=== PATIENT | male | born 1955 | race Caucasian/White ===

== ENCOUNTER 2021-05-17 06:53 | Inpatient (IN) | payer MEDICARE ==
[~2021-05-17] VITALS: Ht 182.9 cm; Wt 74.7 kg
[~2021-05-17 06:53] MED LIST: ALPR0.5T8 PO; CARI350T26 PO; DIAZ10 PO; HYDR-4069 PO; MORP100T6 PO; OXYC10TA59 PO; SEVE800T17 PO
[2021-05-17] MEDS ORDERED: ALBUTEROL SULFATE HFA 90 MCG/PUFF 8 GM INHALER IH ONE (07:15)
[2021-05-17] MEDS ORDERED: SODIUM CHLORIDE 0.9% 1,000 ML IV ONE (07:30)
[2021-05-17] MEDS ORDERED: SODIUM CHLORIDE 0.9% 2,250 ML IV ONE (07:30)
[2021-05-17] MEDS ORDERED: ACETAMINOPHEN 1000 MG/ISO-OSM 100 ML IV ONE (07:30)
[2021-05-17 07:31] LABS: ABG BASE EXCESS -2.1 mmol/L (-2.0-3.0); ABG CARBOXYHEMOGLOBIN 3.3 % (0.0-1.5); ABG HCO3 22.9 mmol/L (22.0-26.0); ABG METHEMOGLOBIN 0.3 % (0.0-1.5); ABG OXYGEN CONTENT 14.7 mL/dL (15.0-23.0); ABG OXYGEN SATURATION 95.7 % (95.0-98.0); ABG OXYHEMOGLOBIN 92.3 % (94.0-100.0); ABG PCO2 43 mmHg (35-45); ABG PH 7.352 (7.35-7.450); ABG TOTAL HEMOGLOBIN 11.3 G/dL (12.0-18.0); PO2, ARTERIAL BG 88.8 mmHg (79.0-87.0); SOURCE, BLOOD GAS ARTERIAL; TEMPERATURE, FAHRENHEIT, BG 101.5 FAHREN (96.0-98.6)
[2021-05-17 07:32] LABS: O2 DEVICE,BLOOD GAS CANNULA (ROOM AIR); SITE, BLOOD GAS LFT BRACHIAL
[2021-05-17 07:33] LABS: COVID AG,FIA SOURCE NASAL SWAB
[2021-05-17 07:38] LABS: BASOPHILS % (AUTO) 0.2 % (0.0-2.0); EOSINOPHILS % (AUTO) 0.9 % (1.0-6.0); HEMATOCRIT 34.4 % (41-53); HEMOGLOBIN 11.4 g/dL (13.5-17.5); LYMPHOCYTES # (AUTO) 0.2 K/uL (1.0-4.8); MEAN CORPUSCULAR HEMOGLOBIN 31.6 pg (26.0-34.0); MEAN CORPUSCULAR HGB CONC 33.2 G/dL (31.0-37.0); MEAN CORPUSCULAR VOLUME 95 fL (80-100); MONOCYTES % (AUTO) 1.3 % (2.0-9.0); NEUTROPHILS # (AUTO) 1.8 K/uL (1.8-7.7); PLATELET COUNT (AUTO) 189 K/uL (150-450); RED BLOOD CELL COUNT(AUTO) 3.61 MIL/uL (4.50-5.90); RED CELL DISTRIBUTION WIDTH 14.2 % (11.5-14.5)
[2021-05-17 07:43] LABS: NEUTROPHILS % (AUTO) 88.6 % (40.0-70.0)
[2021-05-17] MEDS ORDERED: CefTRIAXone 1 GM/DEXTROSE 50 ML IV ONE (07:45)
[2021-05-17] MEDS ORDERED: AZITHROMYCIN 500 MG/NS 250 ML IV ONE (07:45)
[2021-05-17 07:50] LABS: CALCIUM, TOTAL 9.7 mg/dL (8.8-10.5); CREATININE 4.91 mg/dL (0.60-1.30); POTASSIUM 5.1 mmol/L (3.5-5.1)
[2021-05-17 07:56] LABS: PHOSPHORUS 3.8 mg/dL (2.5-4.9); TOTAL PROTEIN, SERUM 7.8 g/dL (6.4-8.2)
[2021-05-17 08:01] LABS: INFLUENZA TYPE A NEGATIVE FOR TYPE A (NEGATIVE); INFLUENZA TYPE B NEGATIVE FOR TYPE B (NEGATIVE)
[2021-05-17 08:01] LABS: MAGNESIUM 2.3 mg/dL (1.80-2.40)
[2021-05-17 08:21] LABS: LACTIC ACID 1.4 mmol/L (0.4-2.0)
[2021-05-17 08:23] LABS: D-DIMER 9.37 mg/L FEU (0.00-0.50); INR 1.1 (0.9-1.1); PROTHROMBIN TIME 11.4 SEC (9.4-11.6)
[2021-05-17 08:52] LABS: APPEARANCE,URINE CLEAR (CLEAR); BILIRUBIN,URINE NEGATIVE (NEGATIVE); GLUCOSE, URINE (UA) 100 mg/dL (NEGATIVE); KETONES,URINE NEGATIVE (NEGATIVE); LEUKOCYTE ESTERASE ,URINE NEGATIVE (NEGATIVE); NITRATE,URINE NEGATIVE (NEGATIVE); OCCULT BLOOD,URINE TRACE (NEGATIVE); PH,URINE 7.5 (5.0-8.0); PROTEIN,URINE SEE CONFIRM (NEGATIVE); UROBILINOGEN,URINE 0.2 mg/dL (<=1.0)
[2021-05-17 09:02] LABS: BACTERIA,URINE None Seen /HPF (None Seen); RBC,URINE 0-2 /HPF (0-2); SULFOSALICYLIC ACID,URINE 2+ (Negative); WBC,URINE None Seen /HPF (0-5)
[2021-05-17 13:26] VITALS: BP 97/67
[2021-05-17] MEDS ORDERED: LEVE500T20 PO (14:36)
[2021-05-17] MEDS ORDERED: LevETIRAcetam 500 MG TABLET PO ONE (15:30)
[2021-05-17] MEDS ORDERED: ACETAMINOPHEN 325 MG TABLET PO PRN (19:15)
[2021-05-17] MEDS ORDERED: ZOLPIDEM TARTRATE 5 MG TABLET PO PRN (19:15)
[2021-05-17] MEDS ORDERED: ALBUTEROL SULFATE 2.5 MG/0.5 ML NEB SOLUTION NEB PRN (19:15)
[2021-05-17] MEDS ORDERED: HYDROCODONE/ACETAMINOPHEN 5-325 MG TABLET PO PRN (19:15)
[2021-05-17] MEDS ORDERED: IPRATROPIUM BROMIDE 0.5 MG/2.5 ML NEB SOLUTION NEB PRN (19:15)
[2021-05-17] MEDS ORDERED: MORPHINE SULFATE 2 MG/ML SYRINGE IVP PRN (19:15)
[2021-05-17] MEDS ORDERED: BISACODYL 10 MG RECTAL RECTAL SUPPOSITORY PR PRN (19:15)
[2021-05-17] MEDS ORDERED: MAGNESIUM HYDROXIDE SUSPENSION 30 ML UDCUP PO PRN (19:15)
[2021-05-17] MEDS ORDERED: ONDANSETRON HCL 4 MG/2 ML VIAL IVP PRN (19:15)
[2021-05-17 21:32] VITALS: BP 102/71
[2021-05-17] MEDS: LevETIRAcetam 500 MG TABLET PO SCH (21:57)
[2021-05-17] MEDS: DOCUSATE SODIUM 100 MG CAPSULE PO SCH (21:57)
[2021-05-17] MEDS: HEPARIN SODIUM,PORCINE 5,000 UNITS/ML VIAL SQ SCH (23:28)
[2021-05-17] MEDS ORDERED: GuaiFENesin [SUGAR-FREE] 200 MG/10 ML SOLUTION UDCUP PO PRN ×2 (23:30)
[2021-05-18 00:07] VITALS: BP 111/74
[2021-05-18 01:36] VITALS: BP 111/74
[2021-05-18 04:00] VITALS: BP 122/77
[2021-05-18] MEDS ORDERED: CefTRIAXone 1 GM/DEXTROSE 50 ML IV SCH (08:00)
[2021-05-18 08:02] VITALS: BP 117/75
[2021-05-18] MEDS: LevETIRAcetam 500 MG TABLET PO SCH (08:40)
[2021-05-18] MEDS: DOCUSATE SODIUM 100 MG CAPSULE PO SCH (08:41)
[2021-05-18] MEDS: HEPARIN SODIUM,PORCINE 5,000 UNITS/ML VIAL SQ SCH ×2 (08:41→16:39)
[2021-05-18] MEDS: SEVELAMER CARBONATE 800 MG TABLET PO SCH ×2 (08:41→12:00)
[2021-05-18] MEDS ORDERED: AZITHROMYCIN 500 MG/NS 250 ML IV SCH (09:00)
[2021-05-18] MEDS ORDERED: PANTOPRAZOLE SODIUM 40 MG/VIAL IVP SCH (09:00)
[2021-05-18 11:00] VITALS: BP 126/80
[2021-05-18] MEDS ORDERED: SODIUM CHLORIDE 0.9% 1,000 ML ONE (11:48)
[2021-05-18 14:52] VITALS: BP 122/81
[2021-05-18] MEDS ORDERED: VITAMIN B COMP/VIT C/FOLIC ACID CAPSULE PO SCH (17:00)
== END 2021-05-18 18:10 | disposition critical access hospital (66) | DRG 871 ==
LOC: EMS 06:54 → 5N 11:08
PROVIDERS: ADMIT Hospitalist; ATTEND Hospitalist
DX: A41.9 Sepsis, unspecified organism (principal); J18.9 Pneumonia, unspecified organism; N18.6 End stage renal disease; J96.01 Acute respiratory failure with hypoxia; I47.1 Supraventricular tachycardia; R56.9 Unspecified convulsions; Z20.822 Contact with and (suspected) exposure to COVID-19; G89.29 Other chronic pain; M54.9 Dorsalgia, unspecified; D64.9 Anemia, unspecified; D72.819 Decreased white blood cell count, unspecified; F17.210 Nicotine dependence, cigarettes, uncomplicated; Z79.899 Other long term (current) drug therapy; Z85.038 Personal history of other malignant neoplasm of large intestine; Z93.3 Colostomy status; Z99.2 Dependence on renal dialysis
CPT/HCPCS: 36600; 51702; 70450; 71045; 74176; 80053; 81001; 81002; 82550; 82805; 83605; 83735; 83880; 84100; 84145; 84484; 85025; 85379; 85610; 85730; 87040; 87081; 87804; 93005; 93970; 99291; C9113; G0480; J0131; J0456; J0696; J1644; J3535; J7030; 36415-L1; 36415-TC; U0003

== ENCOUNTER 2021-10-11 04:24 | Inpatient (IN) | payer MEDICARE ==
[~2021-10-11] VITALS: Ht 175.3 cm; Wt 66.2 kg
[2021-10-11] VITALS (12 sets, daily range): BP systolic 131–158; BP diastolic 81–96
[~2021-10-11 04:24] MED LIST changes: +ALPR-707 PO; -ALPR0.5T8 PO; +CARI-493 PO; -CARI350T26 PO; +LEVE500T20 PO
[2021-10-11 04:36] LABS: COVID AG,FIA SOURCE NASOPHARYNGEAL
[2021-10-11] MEDS ORDERED: FUROSEMIDE 40 MG/4 ML VIAL IVP ONE (04:45)
[2021-10-11] MEDS ORDERED: CALCIUM GLUCONATE 100 MG/ML 10 ML IVP ONE (04:45)
[2021-10-11] MEDS ORDERED: ALBUTEROL SULFATE 2.5 MG/0.5 ML NEB SOLUTION NEB ONE (04:45)
[2021-10-11 04:59] LABS: INFLUENZA TYPE A NEGATIVE FOR TYPE A (NEGATIVE); INFLUENZA TYPE B NEGATIVE FOR TYPE B (NEGATIVE)
[2021-10-11 05:00] LABS: BASOPHILS % (AUTO) 1.2 % (0.0-2.0); EOSINOPHILS % (AUTO) 2.8 % (1.0-6.0); HEMATOCRIT 36.5 % (41-53); HEMOGLOBIN 11.5 g/dL (13.5-17.5); LYMPHOCYTES # (AUTO) 1.4 K/uL (1.0-4.8); MEAN CORPUSCULAR HGB CONC 31.6 G/dL (31.0-37.0); MEAN CORPUSCULAR VOLUME 98 fL (80-100); MONOCYTES # (AUTO) 0.6 K/uL (0.1-1.0); MONOCYTES % (AUTO) 6.2 % (2.0-9.0); NEUTROPHILS # (AUTO) 7.6 K/uL (1.8-7.7); NEUTROPHILS % (AUTO) 75.8 % (40.0-70.0); PLATELET COUNT (AUTO) 260 K/uL (150-450); RED BLOOD CELL COUNT(AUTO) 3.72 MIL/uL (4.50-5.90); RED CELL DISTRIBUTION WIDTH 15.7 % (11.5-14.5)
[2021-10-11 05:16] LABS: ALANINE AMINOTRANSFERASE 48 U/L (12-78); ALBUMIN 3.5 g/dL (3.4-5.0); ALKALINE PHOSPHATASE 118 U/L (46-116); ANION GAP 16 mmol/L (8-16); ASPARTATE AMINOTRANSFERASE 34 U/L (15-37); BILIRUBIN,TOTAL 0.5 mg/dL (0.1-1.0); CALCIUM, TOTAL 8.7 mg/dL (8.8-10.5); CARBON DIOXIDE 17 mmol/L (22-29); CHLORIDE 99 mmol/L (98-107); CREATININE 5.65 mg/dL (0.60-1.30); GLUCOSE,RANDOM 172 mg/dL (70-110); LACTIC ACID 1.8 mmol/L (0.4-2.0); LIPASE 74 U/L (73-393); SODIUM SERUM 132 mmol/L (136-145); TOTAL PROTEIN, SERUM 7.7 g/dL (6.4-8.2); UREA NITROGEN, BLOOD 88 mg/dL (7-18)
[2021-10-11 05:19] LABS: GLOMERULAR FILTR. RATE CALC 10 mL/min (>60); POTASSIUM 8.3 mmol/L (3.5-5.1)
[2021-10-11 05:20] LABS: B-TYPE NATRIURETIC PEPTIDE > 5000 pg/mL (0-100)
[2021-10-11] MEDS ORDERED: DEXTROSE 50%-WATER 25 GM/50 ML SYRINGE IVP ONE ×3 (05:30→10:00)
[2021-10-11] MEDS ORDERED: SODIUM BICARBONATE [ADULT] 8.4% 50 MEQ/50 ML SYRINGE IVP ONE (05:30)
[2021-10-11] MEDS ORDERED: INSULIN REGULAR, HUMAN 100 UNITS/ML IVP ONE (05:30)
[2021-10-11] MEDS ORDERED: OXYGEN THERAPY IH SCH (08:00)
[2021-10-11 08:01] LABS: GLUCOSE,POINT OF CARE 95 MG/DL (70-110)
[2021-10-11 09:45] LABS: ALBUMIN 3.4 g/dL (3.4-5.0); BILIRUBIN,TOTAL 0.5 mg/dL (0.1-1.0); CALCIUM, TOTAL 9.2 mg/dL (8.8-10.5); CREATININE 5.83 mg/dL (0.60-1.30); TOTAL PROTEIN, SERUM 7.9 g/dL (6.4-8.2)
[2021-10-11 09:49] LABS: POTASSIUM 7.3 mmol/L (3.5-5.1)
[2021-10-11 10:21] LABS: GLUCOSE,POINT OF CARE 26 MG/DL (70-110)
[2021-10-11 10:21] LABS: GLUCOSE,POINT OF CARE 118 MG/DL (70-110)
[2021-10-11 11:01] LABS: GLUCOSE,POINT OF CARE 86 MG/DL (70-110)
[2021-10-11 11:36] LABS: GLUCOSE,POINT OF CARE 75 MG/DL (70-110)
[2021-10-11] MEDS ORDERED: MORP100T6 PO (12:30)
[2021-10-11] MEDS ORDERED: CARV12.530 PO (12:30)
[2021-10-11] MEDS ORDERED: LevETIRAcetam 1,500 MG in DEXTROSE 5%-WATER 100 ML IV ONE (12:30)
[2021-10-11] MEDS ORDERED: OXYC30TA2 PO (12:30)
[2021-10-11] MEDS ORDERED: DEXTROSE 50%-WATER 25 GM/50 ML SYRINGE IVP PRN (12:45)
[2021-10-11 12:51] LABS: GLUCOSE,POINT OF CARE 93 MG/DL (70-110)
[2021-10-11 13:05] LABS: ABG BASE EXCESS -2.8 mmol/L (-2.0-3.0); ABG CARBOXYHEMOGLOBIN 3.4 % (0.0-1.5); ABG HCO3 21.6 mmol/L (22.0-26.0); ABG METHEMOGLOBIN 0.2 % (0.0-1.5); ABG OXYGEN CONTENT 15.5 mL/dL (15.0-23.0); ABG OXYGEN SATURATION 95.2 % (95.0-98.0); ABG OXYHEMOGLOBIN 91.8 % (94.0-100.0); ABG PCO2 56 mmHg (35-45); ABG PH 7.254 (7.35-7.450); O2 DEVICE,BLOOD GAS BIPAP (ROOM AIR); PO2, ARTERIAL BG 72.4 mmHg (79.0-87.0); SITE, BLOOD GAS RT RADIAL; SOURCE, BLOOD GAS ARTERIAL; SPONTANEOUS VT, BG 829 ml; TEMPERATURE, FAHRENHEIT, BG 98.6 FAHREN (96.0-98.6)
[2021-10-11 13:06] LABS: INSPIRATORY TIME, BG 1 SEC
[2021-10-11] MEDS ORDERED: SODIUM CHLORIDE 0.9% 250 ML IV ONE (14:29)
[2021-10-11 16:07] LABS: GLUCOSE,POINT OF CARE 94 MG/DL (70-110)
[2021-10-11 16:28] LABS: BASOPHILS % (AUTO) 0.2 % (0.0-2.0); EOSINOPHILS % (AUTO) 0 % (1.0-6.0); HEMATOCRIT 33.9 % (41-53); HEMOGLOBIN 10.8 g/dL (13.5-17.5); LYMPHOCYTES # (AUTO) 0.2 K/uL (1.0-4.8); LYMPHOCYTES % (AUTO) 1.3 % (22.0-44.0); MEAN CORPUSCULAR HEMOGLOBIN 30.4 pg (26.0-34.0); MEAN CORPUSCULAR VOLUME 95 fL (80-100); MONOCYTES # (AUTO) 0.8 K/uL (0.1-1.0); MONOCYTES % (AUTO) 5.5 % (2.0-9.0); NEUTROPHILS # (AUTO) 13.1 K/uL (1.8-7.7); PLATELET COUNT (AUTO) 220 K/uL (150-450); RED BLOOD CELL COUNT(AUTO) 3.57 MIL/uL (4.50-5.90); RED CELL DISTRIBUTION WIDTH 15.2 % (11.5-14.5)
[2021-10-11 16:49] LABS: ALBUMIN 3.4 g/dL (3.4-5.0); BILIRUBIN,TOTAL 0.5 mg/dL (0.1-1.0); CALCIUM, TOTAL 8.7 mg/dL (8.8-10.5); CREATININE 3.6 mg/dL (0.60-1.30); MAGNESIUM 2.3 mg/dL (1.80-2.40); PHOSPHORUS 6.5 mg/dL (2.5-4.9); POTASSIUM 4.8 mmol/L (3.5-5.1); TOTAL PROTEIN, SERUM 7.4 g/dL (6.4-8.2)
[2021-10-11] MEDS: SEVELAMER CARBONATE 800 MG TABLET PO SCH (17:30)
[2021-10-11 17:31] LABS: GLUCOSE,POINT OF CARE 114 MG/DL (70-110)
[2021-10-11] MEDS: CINACALCET HCL 30 MG TABLET PO SCH (17:50)
[2021-10-11] MEDS: DOXERCALCIFEROL 4 MCG/2 ML VIAL IVP SCH (17:54)
[2021-10-12] VITALS (14 sets, daily range): BP systolic 141–166; BP diastolic 71–98
[2021-10-12] MEDS: LevETIRAcetam 1,000 MG in DEXTROSE 5%-WATER 100 ML IV SCH ×2 (04:37→16:09)
[2021-10-12 05:59] LABS: BASOPHILS % (AUTO) 0.1 % (0.0-2.0); EOSINOPHILS % (AUTO) 0 % (1.0-6.0); HEMATOCRIT 35.8 % (41-53); HEMOGLOBIN 11.4 g/dL (13.5-17.5); LYMPHOCYTES # (AUTO) 0.4 K/uL (1.0-4.8); LYMPHOCYTES % (AUTO) 3.7 % (22.0-44.0); MEAN CORPUSCULAR HEMOGLOBIN 30.5 pg (26.0-34.0); MEAN CORPUSCULAR HGB CONC 31.9 G/dL (31.0-37.0); MEAN CORPUSCULAR VOLUME 96 fL (80-100); MONOCYTES # (AUTO) 0.8 K/uL (0.1-1.0); MONOCYTES % (AUTO) 6.4 % (2.0-9.0); NEUTROPHILS # (AUTO) 10.8 K/uL (1.8-7.7); PLATELET COUNT (AUTO) 226 K/uL (150-450); RED BLOOD CELL COUNT(AUTO) 3.73 MIL/uL (4.50-5.90); RED CELL DISTRIBUTION WIDTH 15.3 % (11.5-14.5)
[2021-10-12 06:09] LABS: CALCIUM, TOTAL 8.8 mg/dL (8.8-10.5); CREATININE 4.45 mg/dL (0.60-1.30); PHOSPHORUS 8.5 mg/dL (2.5-4.9)
[2021-10-12 06:14] LABS: POTASSIUM 6.7 mmol/L (3.5-5.1)
[2021-10-12] MEDS ORDERED: CALCIUM GLUCONATE 100 MG/ML 10 ML IVP ONE (06:30)
[2021-10-12 06:42] LABS: NEUTROPHILS % (AUTO) 89.8 % (40.0-70.0)
[2021-10-12 08:26] LABS: GLUCOSE,POINT OF CARE 104 MG/DL (70-110)
[2021-10-12] MEDS: CARISOPRODOL 350 MG TABLET PO SCH (08:59)
[2021-10-12] MEDS: SEVELAMER CARBONATE 800 MG TABLET PO SCH ×3 (08:59→17:49)
[2021-10-12] MEDS ORDERED: SODIUM CHLORIDE 0.9% 2,000 ML ONE (09:36)
[2021-10-12 12:54] LABS: ABG BASE EXCESS 2.3 mmol/L (-2.0-3.0); ABG HCO3 25.4 mmol/L (22.0-26.0); ABG METHEMOGLOBIN 0.3 % (0.0-1.5); ABG OXYGEN CONTENT 16.1 mL/dL (15.0-23.0); ABG OXYGEN SATURATION 97.7 % (95.0-98.0); ABG OXYHEMOGLOBIN 95.5 % (94.0-100.0); ABG PH 7.263 (7.35-7.450); ABG TOTAL HEMOGLOBIN 11.9 G/dL (12.0-18.0); PO2, ARTERIAL BG 102.7 mmHg (79.0-87.0); SOURCE, BLOOD GAS ARTERIAL; TEMPERATURE, FAHRENHEIT, BG 98.7 FAHREN (96.0-98.6)
[2021-10-12 12:57] LABS: ABG PCO2 67 mmHg (35-45)
[2021-10-12 12:58] LABS: SITE, BLOOD GAS RT RADIAL
[2021-10-12 12:59] LABS: ABG A-A DIFF O2 76.6 mmHg (10-20.0); O2 DEVICE,BLOOD GAS CANNULA (ROOM AIR)
[2021-10-12] MEDS: CefTRIAXone SODIUM 2 GM in DEXTROSE 5%-WATER 50 ML IV SCH (15:18)
[2021-10-12] MEDS: DOXYCYCLINE HYCLATE 100 MG in DEXTROSE 5%-WATER 100 ML IV SCH (16:29)
[2021-10-12 18:02] LABS: GLUCOSE,POINT OF CARE 144 MG/DL (70-110)
[2021-10-12 22:59] LABS: CALCIUM, TOTAL 8.9 mg/dL (8.8-10.5); CREATININE 3.41 mg/dL (0.60-1.30); POTASSIUM 4.9 mmol/L (3.5-5.1)
[2021-10-13 00:59] VITALS: BP 153/80
[2021-10-13] MEDS ORDERED: SODIUM CHLORIDE 0.9% 250 ML IV ONE (03:05)
[2021-10-13] MEDS: DOXYCYCLINE HYCLATE 100 MG in DEXTROSE 5%-WATER 100 ML IV SCH ×2 (03:11→16:13)
[2021-10-13] MEDS: LevETIRAcetam 1,000 MG in DEXTROSE 5%-WATER 100 ML IV SCH ×2 (04:32→17:19)
[2021-10-13 07:08] VITALS: BP 152/87
[2021-10-13] MEDS: SEVELAMER CARBONATE 800 MG TABLET PO SCH ×3 (08:35→17:35)
[2021-10-13] MEDS: CARISOPRODOL 350 MG TABLET PO SCH (08:35)
[2021-10-13] MEDS: EPOETIN ALFA 10,000 UNITS/ML 2 ML VIAL SQ SCH (08:38)
[2021-10-13 10:15] LABS: CREATININE 4.07 mg/dL (0.60-1.30); POTASSIUM 4.9 mmol/L (3.5-5.1)
[2021-10-13 11:04] VITALS: BP 149/82
[2021-10-13 15:10] VITALS: BP 151/94
[2021-10-13] MEDS: CefTRIAXone SODIUM 2 GM in DEXTROSE 5%-WATER 50 ML IV SCH (15:48)
[2021-10-13] MEDS: CINACALCET HCL 30 MG TABLET PO SCH (17:35)
[2021-10-13] MEDS: DOXERCALCIFEROL 4 MCG/2 ML VIAL IVP SCH (17:35)
[2021-10-13 20:14] VITALS: BP 134/84
[2021-10-14 00:22] VITALS: BP 145/79
[2021-10-14] MEDS: DOXYCYCLINE HYCLATE 100 MG in DEXTROSE 5%-WATER 100 ML IV SCH ×2 (03:47→17:35)
[2021-10-14 05:08] VITALS: BP 146/88
[2021-10-14] MEDS: LevETIRAcetam 1,000 MG in DEXTROSE 5%-WATER 100 ML IV SCH ×2 (05:31→17:33)
[2021-10-14 07:30] VITALS: BP 142/82
[2021-10-14 08:03] LABS: BASOPHILS % (AUTO) 0.4 % (0.0-2.0); EOSINOPHILS % (AUTO) 1.2 % (1.0-6.0); HEMATOCRIT 35.4 % (41-53); HEMOGLOBIN 11.4 g/dL (13.5-17.5); LYMPHOCYTES # (AUTO) 0.7 K/uL (1.0-4.8); LYMPHOCYTES % (AUTO) 5.5 % (22.0-44.0); MEAN CORPUSCULAR HEMOGLOBIN 30.1 pg (26.0-34.0); MEAN CORPUSCULAR HGB CONC 32.1 G/dL (31.0-37.0); MEAN CORPUSCULAR VOLUME 94 fL (80-100); MONOCYTES # (AUTO) 1.1 K/uL (0.1-1.0); MONOCYTES % (AUTO) 8.9 % (2.0-9.0); PLATELET COUNT (AUTO) 258 K/uL (150-450); RED BLOOD CELL COUNT(AUTO) 3.78 MIL/uL (4.50-5.90); RED CELL DISTRIBUTION WIDTH 15.3 % (11.5-14.5)
[2021-10-14] MEDS: SEVELAMER CARBONATE 800 MG TABLET PO SCH ×3 (08:07→18:28)
[2021-10-14] MEDS: CARISOPRODOL 350 MG TABLET PO SCH (08:08)
[2021-10-14 08:13] LABS: ALBUMIN 3.1 g/dL (3.4-5.0); BILIRUBIN,TOTAL 0.4 mg/dL (0.1-1.0); CREATININE 5.55 mg/dL (0.60-1.30); POTASSIUM 4.8 mmol/L (3.5-5.1); TOTAL PROTEIN, SERUM 6.9 g/dL (6.4-8.2)
[2021-10-14 12:40] VITALS: BP 144/93
[2021-10-14] MEDS ORDERED: SODIUM CHLORIDE 0.9% 2,000 ML ONE (14:02)
[2021-10-14 15:35] VITALS: BP 133/83
[2021-10-14] MEDS ORDERED: MUPIROCIN CALCIUM 2% 22 GM OINTMENT TP SCH (16:15)
[2021-10-14] MEDS: CefTRIAXone SODIUM 2 GM in DEXTROSE 5%-WATER 50 ML IV SCH (17:33)
[2021-10-14 20:13] VITALS: BP 136/83
[2021-10-14] MEDS: MUPIROCIN CALCIUM 2% 22 GM OINTMENT TP SCH (20:43)
[2021-10-15 00:14] VITALS: BP 139/82
[2021-10-15] MEDS: DOXYCYCLINE HYCLATE 100 MG in DEXTROSE 5%-WATER 100 ML IV SCH ×2 (03:46→15:22)
[2021-10-15 04:16] VITALS: BP 155/93
[2021-10-15] MEDS: LevETIRAcetam 1,000 MG in DEXTROSE 5%-WATER 100 ML IV SCH ×2 (04:53→16:52)
[2021-10-15 07:45] VITALS: BP 136/77
[2021-10-15 08:23] LABS: BASOPHILS % (AUTO) 0.7 % (0.0-2.0); EOSINOPHILS % (AUTO) 1.3 % (1.0-6.0); HEMATOCRIT 35.1 % (41-53); HEMOGLOBIN 11.7 g/dL (13.5-17.5); LYMPHOCYTES # (AUTO) 0.4 K/uL (1.0-4.8); LYMPHOCYTES % (AUTO) 5.2 % (22.0-44.0); MEAN CORPUSCULAR HEMOGLOBIN 30.8 pg (26.0-34.0); MEAN CORPUSCULAR HGB CONC 33.2 G/dL (31.0-37.0); MEAN CORPUSCULAR VOLUME 93 fL (80-100); MONOCYTES # (AUTO) 0.8 K/uL (0.1-1.0); NEUTROPHILS # (AUTO) 6.9 K/uL (1.8-7.7); NEUTROPHILS % (AUTO) 82.8 % (40.0-70.0); PLATELET COUNT (AUTO) 225 K/uL (150-450); RED CELL DISTRIBUTION WIDTH 15.1 % (11.5-14.5)
[2021-10-15] MEDS: VITAMIN B COMP/VIT C/FOLIC ACID CAPSULE PO SCH (08:23)
[2021-10-15] MEDS: SEVELAMER CARBONATE 800 MG TABLET PO SCH ×3 (08:23→18:06)
[2021-10-15] MEDS: CARISOPRODOL 350 MG TABLET PO SCH (08:24)
[2021-10-15] MEDS: EPOETIN ALFA 10,000 UNITS/ML 2 ML VIAL SQ SCH (08:25)
[2021-10-15] MEDS: MUPIROCIN CALCIUM 2% 22 GM OINTMENT TP SCH ×2 (08:25→21:30)
[2021-10-15 08:38] LABS: BILIRUBIN,TOTAL 0.5 mg/dL (0.1-1.0); CALCIUM, TOTAL 8.9 mg/dL (8.8-10.5); CREATININE 4.52 mg/dL (0.60-1.30); POTASSIUM 3.9 mmol/L (3.5-5.1); TOTAL PROTEIN, SERUM 6.8 g/dL (6.4-8.2)
[2021-10-15 11:45] VITALS: BP 142/85
[2021-10-15] MEDS: CINACALCET HCL 30 MG TABLET PO SCH (13:52)
[2021-10-15] MEDS: DOXERCALCIFEROL 4 MCG/2 ML VIAL IVP SCH (13:53)
[2021-10-15] MEDS ORDERED: SODIUM CHLORIDE 0.9% 500 ML IV ONE (14:20)
[2021-10-15] MEDS: CefTRIAXone SODIUM 2 GM in DEXTROSE 5%-WATER 50 ML IV SCH (14:37)
[2021-10-15 20:02] VITALS: BP 136/84
[2021-10-15 23:48] VITALS: BP 123/86
[2021-10-16] MEDS: DOXYCYCLINE HYCLATE 100 MG in DEXTROSE 5%-WATER 100 ML IV SCH ×2 (04:14→14:56)
[2021-10-16] MEDS: LevETIRAcetam 1,000 MG in DEXTROSE 5%-WATER 100 ML IV SCH ×2 (04:14→16:18)
[2021-10-16 04:25] VITALS: BP 136/83
[2021-10-16 07:16] LABS: BASOPHILS % (AUTO) 0.6 % (0.0-2.0); EOSINOPHILS % (AUTO) 1.8 % (1.0-6.0); HEMATOCRIT 36.3 % (41-53); HEMOGLOBIN 12.1 g/dL (13.5-17.5); LYMPHOCYTES # (AUTO) 0.6 K/uL (1.0-4.8); LYMPHOCYTES % (AUTO) 8.3 % (22.0-44.0); MEAN CORPUSCULAR HEMOGLOBIN 30.5 pg (26.0-34.0); MEAN CORPUSCULAR HGB CONC 33.3 G/dL (31.0-37.0); MEAN CORPUSCULAR VOLUME 92 fL (80-100); MONOCYTES # (AUTO) 1.1 K/uL (0.1-1.0); MONOCYTES % (AUTO) 13.7 % (2.0-9.0); NEUTROPHILS # (AUTO) 5.9 K/uL (1.8-7.7); NEUTROPHILS % (AUTO) 75.6 % (40.0-70.0); PLATELET COUNT (AUTO) 224 K/uL (150-450); RED BLOOD CELL COUNT(AUTO) 3.95 MIL/uL (4.50-5.90); RED CELL DISTRIBUTION WIDTH 15.4 % (11.5-14.5)
[2021-10-16 07:30] VITALS: BP 148/97
[2021-10-16 07:37] LABS: ALBUMIN 2.9 g/dL (3.4-5.0); BILIRUBIN,TOTAL 0.5 mg/dL (0.1-1.0); CALCIUM, TOTAL 9.3 mg/dL (8.8-10.5); CREATININE 5.98 mg/dL (0.60-1.30); POTASSIUM 3.9 mmol/L (3.5-5.1); TOTAL PROTEIN, SERUM 6.8 g/dL (6.4-8.2)
[2021-10-16] MEDS: VITAMIN B COMP/VIT C/FOLIC ACID CAPSULE PO SCH (08:07)
[2021-10-16] MEDS: MUPIROCIN CALCIUM 2% 22 GM OINTMENT TP SCH ×3 (08:07→20:04)
[2021-10-16] MEDS: SEVELAMER CARBONATE 800 MG TABLET PO SCH ×3 (08:07→18:11)
[2021-10-16] MEDS: CARISOPRODOL 350 MG TABLET PO SCH (08:08)
[2021-10-16 11:26] VITALS: BP 136/85
[2021-10-16] MEDS: CefTRIAXone SODIUM 2 GM in DEXTROSE 5%-WATER 50 ML IV SCH (14:23)
[2021-10-16 15:43] VITALS: BP 141/83
[2021-10-16 19:58] VITALS: BP 135/84
[2021-10-17 00:06] VITALS: BP 127/82
[2021-10-17] MEDS: LevETIRAcetam 1,000 MG in DEXTROSE 5%-WATER 100 ML IV SCH (03:39)
[2021-10-17] MEDS: DOXYCYCLINE HYCLATE 100 MG in DEXTROSE 5%-WATER 100 ML IV SCH (03:39)
[2021-10-17] MEDS ORDERED: SODIUM CHLORIDE 0.9% 250 ML IV ONE (03:52)
[2021-10-17 05:28] VITALS: BP 117/63
[2021-10-17 05:57] LABS: BASOPHILS % (AUTO) 0.7 % (0.0-2.0); EOSINOPHILS % (AUTO) 3.7 % (1.0-6.0); HEMATOCRIT 39.3 % (41-53); HEMOGLOBIN 12.9 g/dL (13.5-17.5); LYMPHOCYTES # (AUTO) 0.7 K/uL (1.0-4.8); LYMPHOCYTES % (AUTO) 9.1 % (22.0-44.0); MEAN CORPUSCULAR HEMOGLOBIN 30.6 pg (26.0-34.0); MEAN CORPUSCULAR HGB CONC 32.7 G/dL (31.0-37.0); MEAN CORPUSCULAR VOLUME 93 fL (80-100); MONOCYTES # (AUTO) 1.1 K/uL (0.1-1.0); MONOCYTES % (AUTO) 13.9 % (2.0-9.0); NEUTROPHILS # (AUTO) 5.5 K/uL (1.8-7.7); NEUTROPHILS % (AUTO) 72.6 % (40.0-70.0); PLATELET COUNT (AUTO) 237 K/uL (150-450); RED BLOOD CELL COUNT(AUTO) 4.21 MIL/uL (4.50-5.90); RED CELL DISTRIBUTION WIDTH 15.4 % (11.5-14.5)
[2021-10-17 06:15] LABS: ALBUMIN 3.2 g/dL (3.4-5.0); BILIRUBIN,TOTAL 0.5 mg/dL (0.1-1.0); CALCIUM, TOTAL 9.7 mg/dL (8.8-10.5); CREATININE 7.26 mg/dL (0.60-1.30); POTASSIUM 4.4 mmol/L (3.5-5.1); TOTAL PROTEIN, SERUM 7.4 g/dL (6.4-8.2)
[2021-10-17] MEDS: CARISOPRODOL 350 MG TABLET PO SCH (10:21)
[2021-10-17] MEDS: VITAMIN B COMP/VIT C/FOLIC ACID CAPSULE PO SCH (10:21)
[2021-10-17] MEDS: SEVELAMER CARBONATE 800 MG TABLET PO SCH ×2 (10:21→13:06)
[2021-10-17] MEDS: MUPIROCIN CALCIUM 2% 22 GM OINTMENT TP SCH (10:22)
[2021-10-17 11:24] VITALS: BP 133/74
[2021-10-17] MEDS ORDERED: CARV3 PO (14:54)
[2021-10-17 15:16] VITALS: BP 150/87
== END 2021-10-17 16:20 | DRG 640 ==
LOC: EMS 04:28 → ICU 10:10 → 5S 10-13 00:20
PROVIDERS: ADMIT Hospitalist; ATTEND Hospitalist
PROC: 5A09357 Assistance with Respiratory Ventilation, Less than 24 Consecutive Hours, Continuous Positive Airway Pressure (ICD-10-PCS; principal; 2021-10-11)
PROC: 5A1D70Z Performance of Urinary Filtration, Intermittent, Less than 6 Hours Per Day (ICD-10-PCS; 2021-10-11)
PROC: 5A09357 Assistance with Respiratory Ventilation, Less than 24 Consecutive Hours, Continuous Positive Airway Pressure (ICD-10-PCS; 2021-10-12)
PROC: 5A1D70Z Performance of Urinary Filtration, Intermittent, Less than 6 Hours Per Day (ICD-10-PCS; 2021-10-14)
DX: E87.5 Hyperkalemia (principal); J69.0 Pneumonitis due to inhalation of food and vomit; N18.6 End stage renal disease; J96.01 Acute respiratory failure with hypoxia; J91.8 Pleural effusion in other conditions classified elsewhere; G93.40 Encephalopathy, unspecified; I12.0 Hypertensive chronic kidney disease with stage 5 chronic kidney disease or end stage renal disease; E87.2 Acidosis; D63.1 Anemia in chronic kidney disease; E16.2 Hypoglycemia, unspecified; Z20.822 Contact with and (suspected) exposure to COVID-19; E83.39 Other disorders of phosphorus metabolism; G40.909 Epilepsy, unspecified, not intractable, without status epilepticus; I44.7 Left bundle-branch block, unspecified; I48.91 Unspecified atrial fibrillation; J43.9 Emphysema, unspecified; M54.9 Dorsalgia, unspecified; G89.29 Other chronic pain; K43.9 Ventral hernia without obstruction or gangrene; N25.0 Renal osteodystrophy; Z87.891 Personal history of nicotine dependence; Z85.038 Personal history of other malignant neoplasm of large intestine; Z93.3 Colostomy status; Z99.2 Dependence on renal dialysis; Z79.899 Other long term (current) drug therapy
CPT/HCPCS: 36600; 71045; 71250; 80048; 80053; 82805; 82962; 83605; 83690; 83735; 83880; 84100; 84484; 85025; 87040; 87081; 87340; 87804; 90935; 93005; 94640; 94660; 97116; 97163; 97166; 97530; 97535; 99291; G0378; J0610; J0696; J0712; J0885; J1270; J1815; J1940; J3490; J7030; J7040; J7050; J7060; 36415-L1; 36415-TC; J7613